=== PATIENT | male | born 1940 | race Caucasian/White ===

== ENCOUNTER 2021-10-22 15:21 | Inpatient (IN) ==
[2021-10-22] MEDS ORDERED: Ondansetron 4 MG/2 ML VIAL IVP PRN (21:52)
[2021-10-22] MEDS ORDERED: Naloxone 0.4 MG/ML INJ IVP PRN (21:52)
[2021-10-22] MEDS ORDERED: *HR* Heparin 5,000 UNIT/ML VIAL IVP PRN ×2 (22:22)
[2021-10-22] MEDS ORDERED: Heparin 25,000UNIT/250ML 1/2NS 25,000 UNIT/250 ML IV.SOLN IVC SCH (22:30)
[2021-10-22 22:31] LABS: Basophils # 0.1 K/mcL (0.0-0.2); Basophils % 0.7 %; Eosinophils # 0.1 K/mcL (0.0-0.6); Eosinophils % 0.7 %; Hematocrit 47.8 % (37.5-50.1); Immature Granulocytes % 0.1 % (0-4); Lymphocytes # 2.4 K/mcL (0.6-4.6); Lymphocytes % 27.1 %; Mean Corpuscular HGB Conc 33.5 g/dL (31.6-35.5); Mean Corpuscular Hemoglobin 33.1 pg (28.0-33.3); Mean Platelet Volume 10.3 fL (9.4-12.4); Monocytes # 0.9 K/mcL (0.0-1.3); Monocytes % 10.7 %; Neutrophils # 5.3 K/mcL (1.6-8.9); Platelet Count 244 K/mcL (140-400); Red Blood Count 4.83 M/mcL (4.19-5.50); Red Cell Distribution Width 12.4 % (11.5-14.5); Segmented Neutrophils % 60.7 %; White Blood Count 8.8 K/mcL (4.3-11.1)
[2021-10-22 22:42] LABS: Heparin anti-factor XA UFH 0.65 IU/mL (0.30-0.70); INR 1.1; Prothrombin Time 12.3 Seconds (9.4-12.1)
[2021-10-22] MEDS: *HR* Heparin 5,000 UNIT/ML VIAL IVP ONE (23:03)
[2021-10-22 23:07] LABS: Activated Partial Thrombo Time 153.1 Seconds (26.0-36.0)
[2021-10-22 23:10] LABS: Albumin 3.8 g/dL (3.5-5.7); Albumin/Globulin Ratio 1.2 (1.1-2.2); Calcium 8.9 mg/dL (8.6-10.3); Globulin 3.3 g/dL (2.4-3.5); Potassium 3.3 mEq/L (3.5-5.1); Total Protein 7.1 g/dL (6.4-8.9); Troponin I 0.14 ng/mL (< 0.04)
[2021-10-22] MEDS ORDERED: Perflutren Lipid Microsphere 1.3 ML in 0.9 % Sodium Chloride 8.7 ML IVP PRN (23:23)
[2021-10-23 08:00] LABS: Bacteria,Urine Few per hpf (None-Few); Bilirubin,Urine Small (Negative); Blood,Urine Small (Negative); Clarity,Urine Clear (Clear); Color,Urine Dark-Yellow (Yellow); Glucose,Urine (UA) Normal (Normal); Ketones,Urine 40 mg/dL (Negative); Leukocyte Esterase,Urine Negative (Negative); Mucus,Urine Few per lpf (None-Few); Nitrite,Urine Negative (Negative); Protein,Urine 30 mg/dL (Neg-Trace); Specific Gravity,Urine 1.022 (1.010-1.025); Squamous Epithelial Cell,Urine Few per hpf (None-Few); Urobilinogen,Urine Normal (Normal)
[2021-10-23] MEDS ORDERED: *HR* Metoprolol 5 MG/5 ML VIAL IVP PRN (08:03)
[2021-10-23] MEDS: cefTRIAXone 1,000 MG in Water for inj. (sterile) 10 ML IVP SCH ×2 (08:32→10:06)
[2021-10-23] MEDS: MetroNIDAZOLE 500 MG/100 ML 500 MG/100 ML BAG IVPB SCH ×3 (08:33→22:56)
[2021-10-23] MEDS: carvediloL 6.25 MG TABLET PO SCH ×2 (12:03→16:05)
[2021-10-23] MEDS ORDERED: Potassium Chloride Elixir 20 MEQ/15 ML UDC PO ONE (12:20)
[2021-10-23] MEDS ORDERED: Lidocaine -MPF 2% 5 ML VIAL ONE (12:41)
[2021-10-23] MEDS ORDERED: *HR* Propofol 200 MG/20 ML VIAL IVP ONE (12:41)
[2021-10-23] MEDS ORDERED: *HR* FentaNYL (PF) 100 MCG/2 ML VIAL ONE (12:41)
[2021-10-23] MEDS ORDERED: Indomethacin 50 MG SUPP.RECT RC ONE (12:47)
[2021-10-23] MEDS ORDERED: *HR* HYDROmorphone PF 0.5 MG/0.5 ML SYRINGE IVP PRN (12:54)
[2021-10-23 12:56] LABS: Magnesium 2.1 mg/dL (1.6-2.6)
[2021-10-23 13:05] LABS: Troponin I 0.11 ng/mL (< 0.04)
[2021-10-23] MEDS ORDERED: Lidocaine HCL 4 ML Topical Solution (Laryng-O-Jet Kit Sterile Pak) TP ONE (13:07)
[2021-10-23] MEDS ORDERED: Ondansetron 4 MG/2 ML VIAL ONE (13:07)
[2021-10-23] MEDS ORDERED: *HR* Heparin 5,000 UNIT/ML VIAL IVP ONE (13:28)
[2021-10-23] MEDS ORDERED: *HR* Heparin 5,000 UNIT/ML VIAL IVP PRN ×2 (13:28)
[2021-10-23] MEDS ORDERED: *HR* Heparin 5,000 UNIT/ML VIAL SQ SCH (14:00)
[2021-10-23] MEDS ORDERED: *HR* Labetalol 20 MG/4 ML SYRINGE IVP STA ×2 (14:08→14:56)
[2021-10-23] MEDS ORDERED: Haloperidol Lactate 5 MG/ML VIAL IM ONE (14:17)
[2021-10-23] MEDS ORDERED: Haloperidol Lactate 5 MG/ML VIAL ONE (14:18)
[2021-10-23] MEDS ORDERED: Haloperidol Lactate 5 MG/ML VIAL IVP STA (14:28)
[2021-10-23] MEDS: cloNIDine HCL 0.1 MG TABLET PO SCH ×2 (16:06→19:55)
[2021-10-23] MEDS: Heparin 25,000UNIT/250ML 1/2NS 25,000 UNIT/250 ML IV.SOLN IVC SCH (17:13)
[2021-10-23] MEDS: *HR* Heparin 5,000 UNIT/ML VIAL IVP ONE (17:13)
[2021-10-24 01:10] LABS: Basophils % 0.2 %; Hematocrit 38.3 % (37.5-50.1); Immature Granulocytes % 0.3 % (0-4); Lymphocytes % 14.6 %; Mean Corpuscular HGB Conc 33.7 g/dL (31.6-35.5); Mean Corpuscular Hemoglobin 33.2 pg (28.0-33.3); Mean Corpuscular Volume 98.7 fL (83.0-100.0); Mean Platelet Volume 10.8 fL (9.4-12.4); Monocytes # 0.6 K/mcL (0.0-1.3); Monocytes % 8.6 %; Platelet Count 187 K/mcL (140-400); Red Blood Count 3.88 M/mcL (4.19-5.50); Red Cell Distribution Width 12.4 % (11.5-14.5); Segmented Neutrophils % 76.3 %; White Blood Count 6.5 K/mcL (4.3-11.1)
[2021-10-24 01:19] LABS: Alanine Aminotransferase 114 Units/L (7-52); Albumin/Globulin Ratio 1.2 (1.1-2.2); Alkaline Phosphatase 102 Units/L (34-104); Aspartate Amino Transferase 68 Units/L (13-39); BUN/Creatinine Ratio 19 (6-26); Blood Urea Nitrogen 23 mg/dL (8-23); Calcium 8.4 mg/dL (8.6-10.3); Carbon Dioxide 26 mEq/L (23-29); Chloride 106 mEq/L (98-107); Globulin 2.6 g/dL (2.4-3.5); Glucose 127 mg/dL (70-105); Osmolality,Calculated 293 (280-300); Potassium 3.6 mEq/L (3.5-5.1); Sodium 139 mEq/L (136-145); Total Protein 5.6 g/dL (6.4-8.9); eGFR For African Americans > 60 (> 60); eGFR For Non-African Americans 58 (> 60)
[2021-10-24 01:22] LABS: Hemoglobin 12.9 g/dL (12.9-16.9)
[2021-10-24] MEDS: cefTRIAXone 1,000 MG in Water for inj. (sterile) 10 ML IVP SCH (08:38)
[2021-10-24] MEDS ORDERED: Water for inj. (sterile) 10 ML ONE (08:42)
[2021-10-24] MEDS: MetroNIDAZOLE 500 MG/100 ML 500 MG/100 ML BAG IVPB SCH ×2 (08:43→16:03)
[2021-10-24] MEDS: Aspirin Enteric Coated 81 MG Tablet PO SCH (08:44)
[2021-10-24] MEDS: cloNIDine HCL 0.1 MG TABLET PO SCH ×4 (08:44→19:39)
[2021-10-24] MEDS: carvediloL 6.25 MG TABLET PO SCH ×2 (08:44→16:03)
[2021-10-24] MEDS: Heparin 25,000UNIT/250ML 1/2NS 25,000 UNIT/250 ML IV.SOLN IVC SCH ×2 (19:40→19:43)
[2021-10-25 01:07] LABS: Basophils % 0.7 %; Eosinophils # 0.1 K/mcL (0.0-0.6); Eosinophils % 1.8 %; Hematocrit 39.5 % (37.5-50.1); Hemoglobin 13.3 g/dL (12.9-16.9); Immature Granulocytes % 0.2 % (0-4); Lymphocytes # 1.8 K/mcL (0.6-4.6); Lymphocytes % 31.6 %; Mean Corpuscular HGB Conc 33.7 g/dL (31.6-35.5); Mean Corpuscular Hemoglobin 33.8 pg (28.0-33.3); Mean Corpuscular Volume 100.3 fL (83.0-100.0); Mean Platelet Volume 10.9 fL (9.4-12.4); Monocytes # 0.5 K/mcL (0.0-1.3); Neutrophils # 3.1 K/mcL (1.6-8.9); Platelet Count 158 K/mcL (140-400); Red Blood Count 3.94 M/mcL (4.19-5.50); Red Cell Distribution Width 12.3 % (11.5-14.5); Segmented Neutrophils % 56.7 %; White Blood Count 5.5 K/mcL (4.3-11.1)
[2021-10-25 01:59] LABS: Alanine Aminotransferase 93 Units/L (7-52); Albumin/Globulin Ratio 1.1 (1.1-2.2); Alkaline Phosphatase 95 Units/L (34-104); Aspartate Amino Transferase 71 Units/L (13-39); BUN/Creatinine Ratio 31 (6-26); Bilirubin,Total 2.9 mg/dL (0.3-1.0); Blood Urea Nitrogen 29 mg/dL (8-23); Calcium 8.5 mg/dL (8.6-10.3); Carbon Dioxide 29 mEq/L (23-29); Chloride 106 mEq/L (98-107); Globulin 2.7 g/dL (2.4-3.5); Glucose 86 mg/dL (70-105); Osmolality,Calculated 293 (280-300); Potassium 3.9 mEq/L (3.5-5.1); Sodium 139 mEq/L (136-145); Total Protein 5.7 g/dL (6.4-8.9); eGFR For African Americans > 60 (> 60); eGFR For Non-African Americans > 60 (> 60)
[2021-10-25 03:41] VITALS: O2SAT 97
[2021-10-25 06:59] VITALS: BP 171/90; PULSE 65; TEMP 98.1
[2021-10-25] MEDS: Aspirin Enteric Coated 81 MG Tablet PO SCH (08:15)
[2021-10-25] MEDS: carvediloL 6.25 MG TABLET PO SCH (08:15)
[2021-10-25] MEDS: cloNIDine HCL 0.1 MG TABLET PO SCH (08:15)
== END 2021-10-25 11:50 | disposition home or self-care (01) | DRG 871 ==
LOC: 3ANU → SUATTDRO 21:31
PROVIDERS: ADMIT Internal Medicine; ATTEND Student in an Organized Health Care Education/Training Program